=== PATIENT | female | born 1955 | race American Indian/Alaskan Native ===

== ENCOUNTER 2016-11-13 09:38 | Outpatient (CLI) | payer MEDICARE ==
--- NOTE | 2016-11-14 07:39 | Magnetic Resonance Report ---
MR BRAIN WITH AND WITHOUT CONTRAST HISTORY: Increasing tactile sensation of the skull with headache. TECHNIQUE: Multisequence, multiplanar MRI before and after IV gadolinium. COMPARISON: Comparison is made with an MR brain with and without contrast from an outlying facility dated 08/03/16. Findings: This examination is slightly limited in the right temporal region and right cerebellar hemisphere secondary to susceptibility artifact from an earring in the right ear. This area could not be removed per the technologist because it was fused by rust. This artifact is most pronounced on the diffusion and flair images. This artifact is also on the previous examination dated 08/03/16. There is no evidence for diffusion restriction although large areas of the right cerebral and cerebellar hemispheres are obscured by artifact. No evidence for hemorrhage, mass, hydrocephalus or extra-axial fluid collection. There is an area of cystic encephalomalacia in the left posterior watershed region measuring 1.8 x 1.8 x 1.6 cm. There is trace hemosiderin deposition in this area. This suggests a previous infarct with some level of hemorrhage in the past. Mild nonspecific chronic periventricular white matter changes are again noted. Minimal to mild mucosal thickening is noted throughout the paranasal sinuses. The mastoid air cells are clear. Orbital cavities and contents are within normal limits. The calvarium and scalp soft tissues demonstrate no abnormality. The postcontrast images are slightly limited but there is no evidence for abnormal enhancement. These findings are unchanged since the comparison exam. IMPRESSION: Nonspecific chronic white matter changes which appear appropriate for this person's age. This is probably secondary to chronic small vessel disease. 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 No acute intracranial process or abnormal enhancement is appreciated on today's exam. The calvarium and scalp soft tissues are unremarkable.
== END 2016-11-13 09:39 | disposition home or self-care (01) ==
LOC: SPVIMAG 09:38
PROVIDERS: ATTEND Internal Medicine Hematology & Oncology
DX: G93.89 Other specified disorders of brain (principal); R20.8 Other disturbances of skin sensation
CPT/HCPCS: 70553; A9577